=== PATIENT | male | born 1975 | race Caucasian/White ===

== ENCOUNTER 2017-02-18 03:34 | Emergency (ER) | payer OTHER ==
[2017-02-18 03:56] LABS: BASOPHILS 0.4 % (0-2); EOSINOPHILS 2.7 % (0-7); HEMATOCRIT 43.7 % (42.0-54.0); HEMOGLOBIN 15.1 g/dL (13.5-17.5); IMMATURE GRANULOCYTES 0.1 % (0-5); LYMPHOCYTES 30.5 % (15-50); MCH 29.6 pg (26.0-34.0); MCHC 34.6 g/dL (31.0-37.0); MCV 85.7 fL (80.0-100.0); MEAN PLATELET VOLUME 10.6 fL (7.4-10.4); MONOCYTES 10.1 % (2-11); NEUTROPHILS 56.2 % (40-80); PLATELET COUNT 205 10x3/uL (130-400); RDW 11.9 % (11.5-14.5); WBC 7.4 10x3/uL (4.8-10.8)
[2017-02-18 04:17] LABS: ALBUMIN 3.7 g/dL (3.4-5.0); ALKALINE PHOSPHATASE 72 U/L (46-116); ALT (SGPT) 33 U/L (10-68); BILIRUBIN - TOTAL 0.26 mg/dL (0.2-1.3); CALC OSMOLALITY 283 mosm/kg (275-300); CALCIUM 9.2 mg/dL (8.5-10.1); CARBON DIOXIDE 31.7 mmol/L (21.0-32.0); CHLORIDE - SERUM 104 mmol/L (98-107); CREATININE - SERUM 1.3 mg/dL (0.6-1.3); GLUCOSE 101 mg/dL (74-106); POTASSIUM - SERUM 3.6 mmol/L (3.5-5.1); PROTEIN - SERUM 7.1 g/dL (6.4-8.2); SODIUM 141 mmol/L (136-145); UREA NITROGEN 20 mg/dL (7-18); eGFR NON AFRICAN AMERICAN 65 mL/min (90-120)
[2017-02-18 04:33] LABS: CHOLESTEROL, TOTAL 206 mg/dL (0-200); CKMB 0.8 U/L (0.0-3.6); CREATINE KINASE 105 UL (21-232); HDL CHOLESTEROL 41 mg/dL (32-96); LDL CHOLESTEROL 108 mg/dL (0-100); LDL-HDL RATIO 2.6 ratio (1.5-3.5); TRIGLYCERIDE 288 mg/dL (30-200)
[2017-02-18 04:35] LABS: TROPONIN-I < 0.017 ng/mL (0.000-0.060)
== END 2017-02-18 04:45 | disposition home or self-care (01) ==
LOC: D.ER 03:34
PROVIDERS: Emergency Medicine
DX: R07.9 Chest pain, unspecified (principal); I10 Essential (primary) hypertension